=== PATIENT | female | born 1945 | race Caucasian/White ===

== ENCOUNTER 2019-11-03 09:36 | Emergency (ER) | payer MEDICARE, OTHER ==
[~2019-11-03] VITALS: Ht 167.6 cm; Wt 64.4 kg
--- NOTE | 2019-11-03 09:59 | EKG ---
[address] [address] Test Date: 2019-11-03 Test Time: 09:55:36 Pat Name: TOY CARMEN Department: Room: Gender: F Managing Supervisor: : 1945 Requested By: ZULMA RIVERA Order Number: [id number] Reading MD: Edward Sinha MD Measurements Intervals [place] Rate: 105 P: [place]: QRS: -20 QRSD: 88 T: 87 QT: 344 QTc: 459 Interpretive Statements SR PAC'S CONSIDER INFEROLATERAL ISCHEMIA Electronically Signed On 11-05-2019 11:36:24 CDT by Edward Sinha MD
[2019-11-03] MEDS ORDERED: diphenhydrAMINE 50 MG/ML VIAL IVP ONE (10:00)
[2019-11-03] MEDS ORDERED: IV NORMAL SALINE 1,000ML 1,000 ML IV ONE (10:00)
[2019-11-03] MEDS ORDERED: ASPIRIN 325 MG TABLET PO ONE (10:00)
[2019-11-03 10:02] LABS: BASO # 0.1 x10^3/uL (0.0-0.2); BASO % 1 % (0-3); EOS # 0.1 x10^3/uL (0.0-0.7); EOS % 1 % (0-3); HEMOGLOBIN 13.2 g/dL (12.0-15.5); LYMPH # 1.4 x10^3/uL (1.0-4.8); LYMPH % 17 % (24-48); MEAN CORPUSCULAR HEMOGLOBIN 28 pg (25-35); MEAN CORPUSCULAR HGB CONC 33 g/dL (31-37); MEAN CORPUSCULAR VOLUME 84 fL (79-100); MONO # 0.4 x10^3/uL (0.0-1.1); MONO % 5 % (0-9); NEUT # 6.5 x10^3uL (1.8-7.7); NEUT % 77 % (31-73); PLATELET COUNT 209 x10^3/uL (140-400); RED BLOOD COUNT 4.77 x10^6/uL (3.50-5.40); RED CELL DISTRIBUTION WIDTH 13.8 % (11.5-14.5); WHITE BLOOD COUNT 8.5 x10^3/uL (4.0-11.0)
[2019-11-03] MEDS ORDERED: DEXAMETHASONE SOD PHOS 10 MG/ML VIAL ONE (10:08)
[2019-11-03 10:10] LABS: ANION GAP 10 (6-14); BLOOD UREA NITROGEN 18 mg/dL (7-20); BUN/CREATININE RATIO 20 (6-20); CALCIUM 9.8 mg/dL (8.5-10.1); CARBON DIOXIDE 29 mmol/L (21-32); CHLORIDE 101 mmol/L (98-107); CREATININE 0.9 mg/dL (0.6-1.0); GFR 61.5; GLUCOSE 123 mg/dL (70-99); POTASSIUM 3.5 mmol/L (3.5-5.1); SODIUM 140 mmol/L (136-145)
[2019-11-03] MEDS ORDERED: DEXAMETHASONE SOD PHOS 4 MG/ML VIAL ONE (10:13)
--- NOTE | 2019-11-03 10:13 | PHYS DOC ---
Past History Past Medical History: A-Fib, CAD, CVA, [place] Past Surgical History: Pacemaker Smoking: Non-smoker Alcohol Use: None Drug Use: None General Adult EDM: Chief Complaint: HEADACHE HPI: HPI: 74-year-old female presents with report of "severe headache "that started at approximately midnight last night. Patient reports she believes it is similar to the stroke she had in 2013. Patient reports it was an ischemic stroke affecting her right hemisphere causing residual deficit to her left side. 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 Patient reports she is currently taking Xarelto. Patient reports she still has some memory difficulties secondary to the stroke. Denies recent trauma. Denies fever or chills. Reports some "muscle spasms "in her neck and left shoulder. Patient also reports this morning started to have some chest discomfort. Denies leg swelling or calf tenderness. Denies shortness of air. Denies known exposure to COVID-19. Patient typically follows at [facility]. Family reports they tried to go to [facility] but were directed to present here. Review of Systems: Review of Systems: Constitutional: Denies fever or chills Eyes: Denies redness or eye pain HENT: Denies nasal congestion or sore throat Respiratory: Denies cough or shortness of breath Cardiovascular: Reports chest pain GI: Denies abdominal pain, nausea, or vomiting : Denies dysuria or hematuria Musculoskeletal: Denies back pain; reports neck pain Integument: Denies rash or skin lesions Neurologic: Reports headache; denies focal weakness or sensory changes Complete systems were reviewed and found to be within normal limits, except as documented in this note. Heart Score: HEART Score for Chest Pain: HEART Score for Chest Pain Response (Comments) Value History Moderately Suspicious 1 ECG Nonspecific Repolarizatio 1 Age > 65 2 Risk Factors 1 or 2 Risk Factors 1 Troponin >3 x Normal Limit 2 Total 7 Risk Factors: Risk Factors: DM, Current or recent (<one month) smoker, HTN, HLP, family history of CAD, obesity. Risk Scores: Score 0 - 3: 2.5% MACE over next 6 weeks - Discharge Home Score 4 - 6: 20.3% MACE over next 6 weeks - Admit for Clinical Observation Score 7 - 10: 72.7% MACE over next 6 weeks - Early Invasive Strategies Current Medications: Current Meds: Current Medications Medications (Trade) Dose Ordered Sig/Zonia Start Time Stop Time Status Last Admin Dose Admin Aspirin (Gloria Aspirin) 325 mg 1X ONCE 11/03/19 10:00 11/03/19 10:01 UNV Dexamethasone Sodium Phosphate (Decadron) 10 mg STK-MED ONCE 11/03/19 10:08 11/03/19 10:08 DC Diphenhydramine HCl (Benadryl) 25 mg 1X ONCE 11/03/19 10:00 11/03/19 10:01 UNV Metoclopramide HCl (Reglan Vial) 10 mg 1X ONCE 11/03/19 10:00 11/03/19 10:01 UNV Orphenadrine Citrate (Norflex) 60 mg 1X ONCE 11/03/19 10:00 11/03/19 10:01 UNV Sodium Chloride 1,000 ml @ 1,000 mls/hr 1X ONCE 11/03/19 10:00 11/03/19 10:59 11/03/19 10:00 1,000 MLS/HR Allergies: Allergies: Allergies Coded Allergies Type Severity Reaction Last Updated Verified Sulfa (Sulfonamide Antibiotics) Allergy Unknown 11/03/19 Yes codeine Allergy Unknown 11/03/19 Yes Physical Exam: PE: Constitutional: Well developed, well nourished, anxious HENT: Normocephalic, atraumatic Eyes: PERRL, EOMI, conjunctiva normal, no discharge, no horizontal nystagmus Neck: Normal range of motion, no midline tenderness, left paraspinal tenderness on palpation, supple Cardiovascular: Tachycardia, bilateral radial pulses intact Lungs & Thorax: No respiratory distress, equal chest rise and fall Abdomen: Soft, no tenderness, no guarding/rebound tenderness/distention Skin: Warm, dry, no erythema, no rash Extremities: No tenderness, ROM intact, no edema Neurologic: Alert and oriented X 3, normal motor function, normal sensory function, no focal deficits noted Psychologic: Affect anxious, judgment normal Current Patient Data: Labs: Laboratory Tests Test 11/03/19 09:41 White Blood Count 8.5 x10^3/uL (4.0-11.0) Red Blood Count 4.77 x10^6/uL (3.50-5.40) Hemoglobin 13.2 g/dL (12.0-15.5) Hematocrit 40.0 % (36.0-47.0) Mean Corpuscular Volume 84 fL (79-100) Mean Corpuscular Hemoglobin 28 pg (25-35) Mean Corpuscular Hemoglobin Concent 33 g/dL (31-37) Red Cell Distribution Width 13.8 % (11.5-14.5) Platelet Count 209 x10^3/uL (140-400) Neutrophils (%) (Auto) 77 % (31-73) H Lymphocytes (%) (Auto) 17 % (24-48) L Monocytes (%) (Auto) 5 % (0-9) Eosinophils (%) (Auto) 1 % (0-3) Basophils (%) (Auto) 1 % (0-3) Neutrophils # (Auto) 6.5 x10^3uL (1.8-7.7) Lymphocytes # (Auto) 1.4 x10^3/uL (1.0-4.8) Monocytes # (Auto) 0.4 x10^3/uL (0.0-1.1) Eosinophils # (Auto) 0.1 x10^3/uL (0.0-0.7) Basophils # (Auto) 0.1 x10^3/uL (0.0-0.2) Sodium Level 140 mmol/L (136-145) Potassium Level 3.5 mmol/L (3.5-5.1) Chloride Level 101 mmol/L (98-107) Carbon Dioxide Level 29 mmol/L (21-32) Anion Gap 10 (6-14) Blood Urea Nitrogen 18 mg/dL (7-20) Creatinine 0.9 mg/dL (0.6-1.0) Estimated GFR (Cockcroft-Gault) 61.5 BUN/Creatinine Ratio 20 (6-20) Glucose Level 123 mg/dL (70-99) H Calcium Level 9.8 mg/dL (8.5-10.1) Magnesium Level Pending Total Bilirubin Pending Aspartate Amino Transferase (AST) Pending Alanine Aminotransferase (ALT) Pending Alkaline Phosphatase Pending Creatine Kinase Pending Creatine Kinase MB (Mass) Pending Creatine Kinase MB Relative Index Pending Total Protein Pending Albumin Pending Albumin/Globulin Ratio Pending EKG: EKG: @0955 Afib at 105bpm, NO ST elevation, QRS 88ms, QT/QTc 344/459ms, slight ST depression V5-V6 Radiology/Procedures: Radiology/Procedures: PROCEDURE: CT CODE STROKE HEAD WO PQRS Compliance Statement: One or more of the following individualized dose reduction techniques were utilized for this examination: 1. Automated exposure control 2. Adjustment of the mA and/or kV according to patient size 3. Use of iterative reconstruction technique CT head without contrast 11/03/2019 9:40 AM INDICATION: Severe headache with history of stroke COMPARISON: None available TECHNIQUE: Multiple axial CT images of the head were obtained from skull base through the vertex without intravenous contrast. FINDINGS: Head: Ventricles, sulci and basal cisterns are prominent compatible with mild to moderate generalized cerebral volume loss. There is loss of the burgess-white matter differentiation involving the posterior right frontal lobe and right temporal lobe compatible with cytotoxic edema or gliosis associated with remote infarct. Superimposed ischemia remains a differential consideration. Infarct extends into the right insula. There is a remote lacunar infarct involving the left caudate head. There is wallerian degeneration along the right cerebral peduncle. Remote lacunar infarct involving the right huma. Posterior fossa is normal in appearance. There is expected dilatation of the right lateral ventricle. No hydrocephalus. No acute intracranial hemorrhage. No mass, mass effect or midline shift. Orbits are normal in appearance with exception of bilateral lens replacement. Paranasal sinuses are well aerated. IMPRESSION: No acute intracranial hemorrhage. Remote ischemic changes are identified in the right middle cerebral artery territory. Acute on chronic ischemia remains a differential consideration. If there is persistent clinical concern, further evaluation with MRI is recommended. Remote lacunar infarct in left caudate head. Remote lacunar infarct in the right huma. Moderate generalized cerebral volume loss. FOR INTERNAL CODING PURPOSES Critical result: Findings discussed with ZULMA RIVERA at 11/03/2019 10:08 AM. RESULT CODE: (C) Electronically signed by: Janey Lipscomb MD (11/03/2019 10:11 AM) [facility] PROCEDURE: CHEST AP ONLY Examination: CHEST AP ONLY History: Reason: Chest pain / Spl. Instructions: / History: Comparison: None. Findings: AP portable upright frontal view of the chest was obtained. Dual left-sided pacemaker is present. The cardiomediastinal silhouette is normal. Lungs are clear. There is no pneumothorax. No pleural effusion is appreciated. No acute bone abnormality. IMPRESSION: No acute cardiopulmonary process. Electronically signed by: Sourav Mcallister MD (11/03/2019 11:10 AM) [id number] Course & Med Decision Making: Course & Med Decision Making Pertinent Labs and Imaging studies reviewed. (See chart for details) Patient presents with report of severe headache which she is concerned it is secondary to a "stroke ". Patient is currently treated with Xarelto secondary to large ischemic stroke from 2013. NIHSS 0. CT head without internal hemorrhage. Significant chronic infarct noted to right side. EKG without ST elevation. Labs obtained and posted to chart. Troponin 0.3. CXR stable. ASA given. Pain addressed. Blood pressure addressed. Held further anticoagulation given patient currently treated with Xarelto. UA with signs of infection. Rocephin provided. Patient requiring transfer for admission for further evaluation and treatment to facility with systems testing laboratory technician capability. Family and patient requesting to be transferred to [facility] as patient cash person (Dr. Goldman) and neurologist (Dr. Steinberg) are both at [facility]. Discussed with Dr. Estefani Velásquez (transfer physician) who is in agreement with transfer for admission. Discussed findings and plan with patient and family, who acknowledge understanding and agreement. Fadia Disclaimer: Fadia Disclaimer: This electronic medical record was generated, in whole or in part, using a voice recognition dictation system. Departure Departure: Impression: Primary Impression: NSTEMI (non-ST elevated myocardial infarction) Additional Impressions: Hypertensive emergency Intractable headache Qualified Codes: R51 - Headache History of cerebrovascular accident (CVA) due to ischemia Urinary tract infection Qualified Codes: N30.01 - Acute cystitis with hematuria Disposition: 05 TRANSFER OTHER ([facility]- Dr. Estefani Velásquez) Condition: GUARDED Referrals: PCP,NO (PCP) Justification of Admission: Justification of Admission: Justification of Admission Dx: Yes TX: Acute NSTEMI Comments: Headache, hypertensive emergency NIHSS - ED NIH Stroke Scale: NIH Stroke Scale Response (Comments) Value Level of Consciousness: 0 Alert/Responsive 0 LOC Questions: 0 Answers both correctly 0 LOC Commands: 0 Performs both tasks 0 Best Gaze: 0 Normal 0 Visual: 0 No visual loss 0 Facial Palsy: 0 Normal, symmetrical 0 Motor - Left Arm 0 No drift 0 Motor - Right Arm 0 No drift 0 Motor - Left Leg 0 No drift 0 Motor: Right Leg 0 No drift 0 Limb Ataxia: 0 Absent 0 Sensory: 0 No loss 0 Best Language: 0 Normal 0 Dysathria: 0 Normal 0 Extinction and Inattention: 0 Normal 0 Total 0 Critical Care Time Critical care time was 30 minutes which includes time at bedside, spent in discussion of patient's care with specialists and/or family members, with interpretation of laboratory and/or radiological studies and is exclusive of procedures. ZULMA RIVERA DO Nov 03, 2019 10:13
[2019-11-03] MEDS ORDERED: DEXAMETHASONE SOD PHOS 10 MG/ML VIAL IV ONE (10:15)
[2019-11-03] MEDS ORDERED: METOCLOPRAMIDE HCL 10 MG/2 ML VIAL. IVP ONE (10:15)
[2019-11-03] MEDS ORDERED: ORPHENADRINE CITRATE 60 MG/2 ML VIAL. IV ONE (10:15)
[2019-11-03 10:25] LABS: ALBUMIN 3.7 g/dL (3.4-5.0); ALBUMIN/GLOBULIN RATIO 0.8 (1.0-1.7); ALK PHOS 128 U/L (46-116); ALT (SGPT) 39 U/L (14-59); AST (SGOT) 24 U/L (15-37); MAGNESIUM 1.8 mg/dL (1.8-2.4); TOTAL BILIRUBIN 0.8 mg/dL (0.2-1.0); TOTAL PROTEIN 8.3 g/dL (6.4-8.2)
[2019-11-03] MEDS ORDERED: LABETALOL 100 MG/20 ML VIAL. IV ONE (10:40)
[2019-11-03] MEDS ORDERED: LABETALOL 20 MG/4 ML DISP.SYRIN. IVP ONE (10:45)
--- NOTE | 2019-11-03 11:13 | RAD ---
Examination: CHEST AP ONLY History: Reason: Chest pain / Spl. Instructions: / History: Comparison: None. Findings: AP portable upright frontal view of the chest was obtained. Dual left-sided pacemaker is present. The cardiomediastinal silhouette is normal. Lungs are clear. There is no pneumothorax. No pleural effusion is appreciated. No acute bone abnormality. IMPRESSION: No acute cardiopulmonary process. Electronically signed by: Sourav Mcallister MD (11/03/2019 11:10 AM) [id number]
[2019-11-03 11:27] LABS: COLOR,URINE YELLOW
[2019-11-03 11:28] LABS: BACTERIA,URINE MOD /HPF (0-FEW); BILIRUBIN,URINE NEG (NEG); CLARITY,URINE CLOUDY; GLUCOSE,URINE NEG (NEG); NITRITE,URINE POS (NEG); SQUAMOUS EPITHELIAL CELL,UR MOD /LPF; UROBILINOGEN,URINE 0.2 mg/dL (0.2 mg/dL); WBC,URINE >40 /HPF (0-4)
[2019-11-03] MEDS ORDERED: IV NORMAL SALINE 50ML 50 ML ONE (11:44)
[2019-11-03] MEDS ORDERED: cefTRIAXone SODIUM 1 GM VIAL ONE (11:44)
[2019-11-03 11:55] VITALS: BP 183/85
== END 2019-11-03 12:03 | disposition short-term general hospital (02) ==
LOC: ER 09:36
DX: I21.4 Non-ST elevation (NSTEMI) myocardial infarction (principal); I16.1 Hypertensive emergency; N30.01 Acute cystitis with hematuria; R51 Headache; I48.91 Unspecified atrial fibrillation; I25.10 Atherosclerotic heart disease of native coronary artery without angina pectoris; I25.2 Old myocardial infarction; Z86.73 Personal history of transient ischemic attack (TIA), and cerebral infarction without residual deficits; Z95.0 Presence of cardiac pacemaker
CPT/HCPCS: 36415; 70450; 71045; 80053; 81001; 82553; 83605; 83735; 84484; 85025; 85610; 85730; 87086; 93005; 96365; 96375; 99291; J0696; J1100; J1200; J2360; J2765; J3010; J3490; J7030

== ENCOUNTER 2020-12-20 03:23 | Emergency (ER) | payer MEDICARE, OTHER ==
[~2020-12-20] VITALS: Ht 160 cm; Wt 65.4 kg
[2020-12-20] MEDS ORDERED: ASPIRIN CHEWABLE 81 MG TABLET. PO ONE (03:45)
[2020-12-20] MEDS ORDERED: NITROGLYCERIN SUBLINGUAL 0.4 MG BOTTLE OF 25. SL PRN (04:15)
[2020-12-20 04:21] LABS: CREATININE 0.8 mg/dL (0.6-1.0); GFR 70.3; POTASSIUM 3.2 mmol/L (3.5-5.1)
[2020-12-20 04:23] LABS: BASO # 0.1 x10^3/uL (0.0-0.2); BASO % 1 % (0-3); EOS # 0.2 x10^3/uL (0.0-0.7); EOS % 2 % (0-3); HEMATOCRIT 36.8 % (36.0-47.0); HEMOGLOBIN 12.1 g/dL (12.0-15.5); LYMPH # 1.8 x10^3/uL (1.0-4.8); LYMPH % 22 % (24-48); MEAN CORPUSCULAR HEMOGLOBIN 28 pg (25-35); MEAN CORPUSCULAR HGB CONC 33 g/dL (31-37); MEAN CORPUSCULAR VOLUME 85 fL (79-100); MONO # 0.7 x10^3/uL (0.0-1.1); MONO % 9 % (0-9); NEUT # 5.6 x10^3uL (1.8-7.7); NEUT % 67 % (31-73); PLATELET COUNT 185 x10^3/uL (140-400); RED BLOOD COUNT 4.35 x10^6/uL (3.50-5.40); WHITE BLOOD COUNT 8.3 x10^3/uL (4.0-11.0)
[2020-12-20 04:27] LABS: ALBUMIN 3.6 g/dL (3.4-5.0); MAGNESIUM 1.9 mg/dL (1.8-2.4); TOTAL PROTEIN 7.1 g/dL (6.4-8.2)
[2020-12-20] MEDS ORDERED: magnesium (04:28)
[2020-12-20] MEDS ORDERED: RIVA20TA2 PO (04:28)
[2020-12-20] MEDS ORDERED: beet root (04:28)
[2020-12-20] MEDS ORDERED: IV RINGERS SOLUTION,LACTATED 1,000 ML IV ONE (04:30)
--- NOTE | 2020-12-20 04:37 | PHYS DOC ---
Past History Past Medical History: A-Fib, CAD, CVA, MS Past Surgical History: Pacemaker Smoking: Non-smoker Alcohol Use: None Drug Use: None Adult General Chief Complaint Chief Complaint: CHEST PAIN HPI HPI Patient is a 75-year-old female with a past medical history significant for MS, CAD, A. fib on Xarelto, and CVA who presents to the emergency department with a chief complaint of acute onset chest pain. States it started about 45 minutes before coming to the emergency department, and woke her up. States it is centralized, dull in nature with radiation up to the left side of her chest and shoulder. States she also feels like she is short of breath. States it does feel similar to previous MS. Denies any recent traumas, travels, illnesses, fevers, abdominal pain, nausea, vomiting, dysuria, hematuria, blood in the stool or diarrhea. Denies any recent orthopnea, dyspnea on exertion, PND or edema. States has been eating and drinking normally for her. States she is making urine and stool normally for her. Review of Systems Review of Systems Review of systems otherwise unremarkable except noted in HPI Current Medications Current Medications Current Medications Medications (Trade) Dose Ordered Sig/Zonia Start Time Stop Time Status Last Admin Dose Admin Aspirin (Aspirin Chewable) 324 mg 1X ONCE 12/20/20 03:45 12/20/20 03:46 DC 12/20/20 04:20 324 MG Nitroglycerin (Nitrostat) 0.4 mg PRN Q5MIN PRN 12/20/20 04:15 12/20/20 04:21 0.4 MG Allergies Allergies Allergies Coded Allergies Type Severity Reaction Last Updated Verified Sulfa (Sulfonamide Antibiotics) Allergy Unknown 11/03/19 Yes codeine Allergy Unknown 11/03/19 Yes Physical Exam Physical Exam Constitutional: Well developed, well nourished, no acute distress, non-toxic appearance. [] HENT: Normocephalic, atraumatic, bilateral external ears normal, oropharynx marcial st, no oral exudates, nose normal. [] Eyes: conjunctiva normal, no discharge. [] Neck: Normal range of motion, no tenderness, supple, no stridor. [] Cardiovascular:Heart rate regular rhythm, no murmur [] Lungs & Thorax: Bilateral breath sounds clear to auscultation, tachypnea [] Abdomen: soft, no tenderness, no masses, no pulsatile masses. [] Skin: Warm, dry, no erythema, no rash. [] Back: No tenderness, no CVA tenderness. [] Extremities: No tenderness, ROM intact, no edema. [] Neurologic: Alert and oriented X 3, no focal deficits noted. [] Psychologic: Affect normal, judgement normal, mood normal. [] Current Patient Data Vital Signs Vital Signs Date Time Temp Pulse Resp B/P (MAP) Pulse Ox O2 Delivery O2 Flow Rate FiO2 12/20/20 04:21 84 206/101 EKG EKG [] Radiology/Procedures Radiology/Procedures [] Heart Score C/O Chest Pain: Yes HEART Score for Chest Pain: HEART Score for Chest Pain Response (Comments) Value History Highly Suspicious 2 ECG Nonspecific Repolarizatio 1 Age > 65 2 Risk Factors >3 Risk Factors or Hx CAD 2 Total 7 Risk Factors: Risk Factors: DM, Current or recent (<one month) smoker, HTN, HLP, family history of CAD, obesity. Risk Scores: Risk Factors: DM, Current or recent (<one month) smoker, HTN, HLP, family history of CAD, obesity. Course & Med Decision Making Course & Med Decision Making Patient is a 75-year-old female who presents with a chief complaint of chest pain Vital signs notable for tachycardia and hypertension. Physical exam noted above. Given aspirin and nitroglycerin. EKG with no STEMI but abnormal with elevated QTC, atrial fibrillation. Placed on 2 L nasal cannula for comfort. Cardiac pads in place. Started on light fluid hydration. Given pain medicine. Elevated troponin. Patient with non-ST elevation MS. Started on heparin. Discussed all findings with patient and family and recommended admission for continued cardiac evaluation of myocardial infarction. Family agreed and requested transfer to [facility] as their mail superintendent Dr. Madden is there. Discussed patient with [facility] transfer line who accepted transfer to telemetry bed. Accepted by Dr. Olguin. [] Dragon Disclaimer Dragon Disclaimer This electronic medical record was generated, in whole or in part, using a voice recognition dictation system. Departure Departure: Impression: Primary Impression: Chest pain Additional Impression: NSTEMI (non-ST elevated myocardial infarction) Disposition: 02 SHORT TERM HOSPITAL Condition: STABLE Referrals: NON,STAFF (PCP) Problem Qualifiers ROBYN ARGUETA MD Dec 20, 2020 04:37
[2020-12-20] MEDS ORDERED: HEPARIN for IV BOLUS 10,000 UNIT/10 ML VIAL. IV ONE (05:00)
[2020-12-20] MEDS ORDERED: HEPARIN 25,000UTS/250ML PREMIX 250 ML IV PRN (05:00)
[2020-12-20] MEDS ORDERED: HEPARIN for IV BOLUS 10,000 UNIT/10 ML VIAL. IV PRN (05:00)
[2020-12-20] MEDS ORDERED: POTASSIUM CHLORIDE 20 MEQ TABLET.ER. PO ONE ×2 (05:45→06:45)
[2020-12-20 05:50] VITALS: BP 211/119
--- NOTE | 2020-12-20 07:15 | RAD ---
XR CHEST 1V INDICATION: chest pain . COMPARISON STUDY: None. FINDINGS: Left pectoral transvenous dual-chamber pacemaker Lungs: Normal lung volume. No pulmonary mass or consolidation. The tracheobronchial tree and hilar st ructures are normal. Pleura: No pleural effusion or pneumothorax. Heart and Mediastinum: Cardiomegaly. Atherosclerotic thoracic aorta. IMPRESSION: No acute cardiopulmonary process. Electronically signed by: Pino Diaz MD (12/20/2020 7:13 AM) [id number]
--- NOTE | 2020-12-20 09:52 | EKG ---
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
== END 2020-12-20 06:02 | disposition short-term general hospital (02) ==
LOC: ER 03:23
DX: I21.4 Non-ST elevation (NSTEMI) myocardial infarction (principal); R07.89 Other chest pain; I48.91 Unspecified atrial fibrillation; I25.2 Old myocardial infarction; I25.10 Atherosclerotic heart disease of native coronary artery without angina pectoris; Z86.73 Personal history of transient ischemic attack (TIA), and cerebral infarction without residual deficits; Z95.0 Presence of cardiac pacemaker; Z88.2 Allergy status to sulfonamides; Z88.5 Allergy status to narcotic agent
CPT/HCPCS: 36415; 71045; 80053; 83735; 84484; 85025; 85379; 85610; 85730; 93005; 96361; 96365; 96375; 96376; 99285; J1644; J3010; J7120